=== PATIENT | female | born 1950 | race American Indian/Alaskan Native ===

== ENCOUNTER 2016-10-30 09:01 | Outpatient (CLI) | payer OTHER | END 2016-10-30 10:10 | disposition home or self-care (01) | LOC: MAMMO 09:01 | DX: Z12.31 Encounter for screening mammogram for malignant neoplasm of breast (principal) | CPT/HCPCS: G0202-TC ==

== ENCOUNTER 2017-05-07 07:17 | Emergency (ER) | payer OTHER ==
[~2017-05-07] VITALS: Ht 165.1 cm; Wt 47.2 kg
[2017-05-07 07:25] VITALS: TEMP 97.2
[2017-05-07 07:54] LABS: PLATELET COUNT 312 K/uL (152-353)
[2017-05-07 08:01] LABS: POTASSIUM 3.8 mmol/L (3.6-5.2)
[2017-05-07 09:35] VITALS: BP 132/67
== END 2017-05-07 09:35 | disposition home or self-care (01) ==
LOC: ED 07:17
DX: C22.8 Malignant neoplasm of liver, primary, unspecified as to type (principal); C79.9 Secondary malignant neoplasm of unspecified site
CPT/HCPCS: 36415; 74022; 80053; 81000; 82150; 83690; 85027; 96374; 96375; 99284; J1170; J2405